=== PATIENT | male | born 1935 | race Caucasian/White ===

== ENCOUNTER 2016-06-12 07:53 | Emergency (ER) | payer OTHER ==
[~2016-06-12] VITALS: Ht 162.6 cm; Wt 94.2 kg
[2016-06-12 08:43] LABS: EOSINOPHIL (%) 0 % (0-5); HEMATOCRIT 36.8 % (38.0-50.0); IMMATURE GRANULOCYTE (%) 0.2 % (0.0-0.7); IMMATURE GRANULOCYTE COUNT 0.1 K/uL; LYMPHOCYTE COUNT 0.3 K/uL (1.0-2.8); MCHC 33.4 G/DL (30.0-36.0); MCV 92.7 FL (86-99); MEAN PLAT.VOLUME 9.5 uM^3 (9.0-12.4); MONOCYTE (%) 3.8 % (3-12); MONOCYTE COUNT 0.2 K/uL (0-0.8); NEUTROPHIL (%) 90.8 % (45-76); NEUTROPHIL COUNT 5.5 K/uL (1.8-6.4); PLATELET COUNT 162 K/uL (156-360); RBC DIS.WIDTH-CV 13.7 % (11.8-14.6); RED BLOOD COUNT 3.97 M/uL (4.00-5.50)
[2016-06-12 08:59] LABS: CHLORIDE 102 mEq/L (99-109); POTASSIUM 4.3 mEq/L (3.7-5.4); SODIUM 138 mEq/L (136-147)
[2016-06-12 09:01] LABS: GLUCOSE 149 mg/dL (70-99)
[2016-06-12 09:02] LABS: ANION GAP 9 MEQ/L (2-14)
[2016-06-12 09:05] LABS: GFR ESTIMATE (CALCULATED) 42 mL/min/; UREA NITROGEN (BUN) 21 mg/dL (9-23)
[2016-06-12 09:46] LABS: INFLUENZA A VIRAL ANTIGEN NEGATIVE; INFLUENZA B VIRAL ANTIGEN NEGATIVE
[2016-06-12 09:47] LABS: ADD MIUA? YES; BILIRUBIN NEGATIVE; BLOOD NEGATIVE; COLOR YELLOW ((YELLOW)); GLUCOSE (STRIP) NEGATIVE; KETONES NEGATIVE; LEUKOCYTES NEGATIVE; NITRITE NEGATIVE; PROTEIN (STRIP) 100; SPECIFIC GRAVITY 1.015 (1.000-1.030); UROBILINOGEN 0.2 MG/DL (0.2-1.0)
[2016-06-12 09:59] LABS: BACTERIA RARE /HPF; EPITHELIAL CELLS 1+ /HPF; HYALINE CASTS 0-5 /LPF; MUCUS NONE SEEN /LPF; RED BLOOD CELLS 0-5 /HPF (0-5); WHITE BLOOD CELLS 0-5 /HPF (0-5)
[2016-06-12] MEDS ORDERED: ZOFRAN4 MG PO ×2 (11:13→11:50)
[2016-06-12] MEDS ORDERED: PRILOSEC20 MG PO (11:47)
[2016-06-12] MEDS ORDERED: LEXAPRO20 MG PO (11:48)
[2016-06-12] MEDS ORDERED: ZYLOPRIM100 MG PO (11:48)
[2016-06-12] MEDS ORDERED: LO-DOSE ASPIRIN81 M2 PO (11:48)
[2016-06-12] MEDS ORDERED: FLOMAX0.4 MG PO (11:49)
[2016-06-12] MEDS ORDERED: LASIX40 MG PO (11:49)
[2016-06-12] MEDS ORDERED: ISOSORBIDE MONO60 MG PO (11:54)
[2016-06-12] MEDS ORDERED: LOPRESSOR50 MG PO (11:55)
[2016-06-12] MEDS ORDERED: DOCUSATE SODIU100 MG PO (11:56)
[2016-06-12] MEDS ORDERED: LAMICTAL100 MG PO (11:56)
[2016-06-12] MEDS ORDERED: NEURONTIN300 MG PO (11:57)
[2016-06-12 11:58] VITALS: BP 151/58
[2016-06-12] MEDS ORDERED: EXTRA STRENGTH500 M1 PO (11:58)
[2016-06-12] MEDS ORDERED: GENTLE LAXATIVE5 M1 PO (11:59)
[2016-06-12] MEDS ORDERED: DULCOLAX10 MG PR (11:59)
[2016-06-12] MEDS ORDERED: BACTRIM,SEPT1 TABLET PO (12:00)
[2016-06-12] MEDS ORDERED: BACTROBAN OINTM22 GM TP (12:01)
== END 2016-06-12 11:59 | disposition home or self-care (01) ==
LOC: EDBD 07:53 → EME 07:53
PROVIDERS: Emergency Medicine
DX: R50.9 Fever, unspecified (principal); S81.801A Unspecified open wound, right lower leg, initial encounter; E11.9 Type 2 diabetes mellitus without complications; J44.9 Chronic obstructive pulmonary disease, unspecified; E78.5 Hyperlipidemia, unspecified; I10 Essential (primary) hypertension; K21.9 Gastro-esophageal reflux disease without esophagitis; I25.10 Atherosclerotic heart disease of native coronary artery without angina pectoris; Z87.891 Personal history of nicotine dependence
CPT/HCPCS: 71020; 80048; 81003; 83605; 85025; 87040; 87502; 99281; 99285

== ENCOUNTER 2016-06-13 16:24 | Inpatient (IN) | payer OTHER ==
[~2016-06-13] VITALS: Ht 162.6 cm; Wt 94.1 kg
[~2016-06-13 16:24] MED LIST: BACTRIM,SEPT1 TABLET PO; BACTROBAN OINTM22 GM TP; DOCUSATE SODIU100 MG PO; DULCOLAX10 MG PR; EXTRA STRENGTH500 M1 PO; FLOMAX0.4 MG PO; GENTLE LAXATIVE5 M1 PO; ISOSORBIDE MONO60 MG PO; LAMICTAL100 MG PO; LASIX40 MG PO; LEXAPRO20 MG PO; LO-DOSE ASPIRIN81 M2 PO; LOPRESSOR50 MG PO; NEURONTIN300 MG PO; PRILOSEC20 MG PO; ZOFRAN4 MG PO; ZYLOPRIM100 MG PO
[2016-06-13 17:14] LABS: EOSINOPHIL (%) 0 % (0-5); HEMATOCRIT 32.1 % (38.0-50.0); IMMATURE GRANULOCYTE (%) 0.5 % (0.0-0.7); IMMATURE GRANULOCYTE COUNT 0.2 K/uL; LYMPHOCYTE COUNT 0.3 K/uL (1.0-2.8); MCV 93.9 FL (86-99); MEAN PLAT.VOLUME 9.2 uM^3 (9.0-12.4); MONOCYTE (%) 7.7 % (3-12); MONOCYTE COUNT 0.3 K/uL (0-0.8); NEUTROPHIL (%) 85.1 % (45-76); NEUTROPHIL COUNT 3.6 K/uL (1.8-6.4); PLATELET COUNT 133 K/uL (156-360); RBC DIS.WIDTH-SD 45.8 % (39-53); RED BLOOD COUNT 3.42 M/uL (4.00-5.50); WHITE BLOOD COUNT 4.2 K/uL (4.1-10.2)
[2016-06-13 17:23] LABS: CHLORIDE 98 mEq/L (99-109); POTASSIUM 4.5 mEq/L (3.7-5.4); SODIUM 133 mEq/L (136-147)
[2016-06-13 17:25] LABS: GLUCOSE 110 mg/dL (70-99)
[2016-06-13 17:26] LABS: ANION GAP 8 MEQ/L (2-14)
[2016-06-13 17:28] LABS: GFR ESTIMATE (CALCULATED) 19 mL/min/
[2016-06-13 17:33] LABS: UREA NITROGEN (BUN) 35 mg/dL (9-23)
[2016-06-13 17:36] LABS: TROP-I INTERPRETATION NEGATIVE; TROPONIN-I 0.08 ng/mL (0.0-0.30)
[2016-06-13 18:31] LABS: ADD MIUA? YES; BILIRUBIN NEGATIVE; BLOOD NEGATIVE; COLOR AMBER ((YELLOW)); GLUCOSE (STRIP) NEGATIVE; KETONES NEGATIVE; LEUKOCYTES NEGATIVE; NITRITE NEGATIVE; PROTEIN (STRIP) 30; SPECIFIC GRAVITY 1.023 (1.000-1.030)
[2016-06-13 18:42] LABS: BACTERIA 2+ /HPF; EPITHELIAL CELLS 1+ /HPF; MUCUS NONE SEEN /LPF; RED BLOOD CELLS NONE SEEN /HPF (0-5); UCUL ADDED? NO; WHITE BLOOD CELLS 0-5 /HPF (0-5)
[2016-06-13 18:43] LABS: CASTS PRESENT /LPF; HYALINE CASTS 0-5 /LPF
[2016-06-13 20:33] VITALS: BP 103/52
[2016-06-14 00:30] VITALS: BP 126/59
[2016-06-14 06:48] LABS: ANION GAP 6 MEQ/L (2-14); CHLORIDE 99 MEQ/L (99-109); POTASSIUM 4.5 MEQ/L (3.7-5.4); SAMPLE HEMOLYSIS CHECK 0; SAMPLE ICTERIC CHECK 0; SAMPLE LIPEMIA CHECK 0; SODIUM 130 MEQ/L (136-147); UREA NITROGEN (BUN) 35 mg/dL (9-23)
[2016-06-14 06:58] LABS: GFR ESTIMATE (CALCULATED) 23 mL/min/; GLUCOSE 74 mg/dL (70-99)
[2016-06-14 07:41] VITALS: BP 121/62
[2016-06-14 13:02] VITALS: BP 111/52
[2016-06-14 16:39] VITALS: BP 107/63
[2016-06-14 18:55] VITALS: BP 132/59
[2016-06-14 19:13] LABS: UR CREATININE CONCENTRATION 131.3 MG/DL
[2016-06-14 23:00] VITALS: BP 144/65
[2016-06-15 03:45] VITALS: BP 131/61
[2016-06-15 06:18] LABS: ANION GAP 10 MEQ/L (2-14); CHLORIDE 101 MEQ/L (99-109); GLUCOSE 66 mg/dL (70-99); IRON 16 MCG/DL (35-150); POTASSIUM 4.4 MEQ/L (3.7-5.4); SAMPLE HEMOLYSIS CHECK 0; SAMPLE ICTERIC CHECK 0; SAMPLE LIPEMIA CHECK 0; SODIUM 134 MEQ/L (136-147); UREA NITROGEN (BUN) 29 mg/dL (9-23); URIC ACID 4.6 mg/dL (3.1-9.2)
[2016-06-15 06:24] LABS: GFR ESTIMATE (CALCULATED) 37 mL/min/
[2016-06-15 08:16] LABS: FERRITIN 342 NG/ML (22-322)
[2016-06-15 08:32] VITALS: BP 159/70
[2016-06-15 11:24] VITALS: BP 160/71
[2016-06-15 15:58] VITALS: BP 135/63
[2016-06-15 18:42] VITALS: BP 125/59
[2016-06-15 23:01] VITALS: BP 110/55
[2016-06-16 06:01] LABS: ANION GAP 8 MEQ/L (2-14); CHLORIDE 102 MEQ/L (99-109); GFR ESTIMATE (CALCULATED) 45 mL/min/; GLUCOSE 80 mg/dL (70-99); SAMPLE HEMOLYSIS CHECK 0; SAMPLE ICTERIC CHECK 0; SAMPLE LIPEMIA CHECK 0; SODIUM 135 MEQ/L (136-147); UREA NITROGEN (BUN) 22 mg/dL (9-23)
[2016-06-16 06:16] LABS: EOSINOPHIL (%) 0 % (0-5); HEMATOCRIT 30.6 % (38.0-50.0); LYMPHOCYTE COUNT 0.7 K/uL (1.0-2.8); MCH 29.4 PG (29.0-34.0); MCV 91.9 FL (86-99); MONOCYTE (%) 12.9 % (3-12); MONOCYTE COUNT 0.3 K/uL (0-0.8); NEUTROPHIL (%) 54.8 % (45-76); NEUTROPHIL COUNT 1.1 K/uL (1.8-6.4); PLATELET COUNT 130 K/uL (156-360); RBC DIS.WIDTH-CV 14.2 % (11.8-14.6); RED BLOOD COUNT 3.33 M/uL (4.00-5.50)
[2016-06-16 07:47] VITALS: BP 154/62
[2016-06-16 08:41] LABS: INTACT PARATHYROID HORMONE 51 pg/mL (10-69)
[2016-06-16 12:33] VITALS: BP 144/70
[2016-06-16] MEDS ORDERED: FERROUS SULFAT325 MG PO (13:00)
[2016-06-16] MEDS ORDERED: B-COMPLEX-VITA1 EACH PO (13:01)
[2016-06-16] MEDS ORDERED: AMLODIPINE BESYL5 MG PO (13:02)
[2016-06-16] MEDS ORDERED: ERGOCALCIF50000 UNIT PO (13:02)
[2016-06-16] MEDS ORDERED: CEFTIN500 MG PO (13:03)
[2016-06-17 14:16] LABS: IFE GEL NO. 30-3
== END 2016-06-16 15:13 | disposition home or self-care (01) | DRG 683 ==
LOC: EME → EDBD 16:24 → EDOF 19:16 → 5EAST 19:16
PROVIDERS: Emergency Medicine; Family Medicine; Internal Medicine Nephrology
DX: N17.9 Acute kidney failure, unspecified (principal); N39.0 Urinary tract infection, site not specified; I95.9 Hypotension, unspecified; I42.9 Cardiomyopathy, unspecified; I13.0 Hypertensive heart and chronic kidney disease with heart failure and stage 1 through stage 4 chronic kidney disease, or unspecified chronic kidney disease; I50.9 Heart failure, unspecified; F03.90 Unspecified dementia, unspecified severity, without behavioral disturbance, psychotic disturbance, mood disturbance, and anxiety; E11.21 Type 2 diabetes mellitus with diabetic nephropathy; N18.3 Chronic kidney disease, stage 3 (moderate); I25.10 Atherosclerotic heart disease of native coronary artery without angina pectoris; E11.22 Type 2 diabetes mellitus with diabetic chronic kidney disease; B96.20 Unspecified Escherichia coli [E. coli] as the cause of diseases classified elsewhere; D63.1 Anemia in chronic kidney disease; E55.9 Vitamin D deficiency, unspecified; E66.9 Obesity, unspecified; Z68.35 Body mass index [BMI] 35.0-35.9, adult; J44.9 Chronic obstructive pulmonary disease, unspecified; E78.5 Hyperlipidemia, unspecified; F41.9 Anxiety disorder, unspecified; E11.42 Type 2 diabetes mellitus with diabetic polyneuropathy; M19.90 Unspecified osteoarthritis, unspecified site; Z87.891 Personal history of nicotine dependence; E53.8 Deficiency of other specified B group vitamins; D50.9 Iron deficiency anemia, unspecified; E87.1 Hypo-osmolality and hyponatremia; R80.9 Proteinuria, unspecified; Z95.1 Presence of aortocoronary bypass graft; I25.2 Old myocardial infarction; S71.101S Unspecified open wound, right thigh, sequela; L03.115 Cellulitis of right lower limb
CPT/HCPCS: 71020; 74176; 76770; 80048; 80069; 80202; 81003; 82306; 82570; 82607; 82728; 82746; 83540; 83605; 83880; 83970; 84300; 84466; 84484; 84550; 85025; 86334; 87040; 87077; 87086; 87186; 87502; 89190; 94799; 99281; 99285; J0690; J1756; J1940; J1956; J2060; J2405; J3370; J7030; J7050; P9047

== ENCOUNTER 2016-06-24 15:56 | Inpatient (IN) | payer OTHER ==
[~2016-06-24] VITALS: Ht 162.6 cm; Wt 91.8 kg
[~2016-06-24 15:56] MED LIST changes: +AMLODIPINE BESYL5 MG PO; +B-COMPLEX-VITA1 EACH PO; +CEFTIN500 MG PO; +ERGOCALCIF50000 UNIT PO; +FERROUS SULFAT325 MG PO
[2016-06-24 16:48] LABS: EOSINOPHIL (%) 0 % (0-5); HEMATOCRIT 35.6 % (38.0-50.0); IMMATURE GRANULOCYTE (%) 0.3 % (0.0-0.7); INSTRUMENT ABS NEUTROPHIL CT 9.2 K/uL; LYMPHOCYTE COUNT 1.3 K/uL (1.0-2.8); MCH 30.3 PG (29.0-34.0); MCHC 32.3 G/DL (30.0-36.0); MCV 93.9 FL (86-99); MEAN PLAT.VOLUME 9.5 uM^3 (9.0-12.4); MONOCYTE (%) 10.1 % (3-12); MONOCYTE COUNT 1.2 K/uL (0-0.8); NEUTROPHIL COUNT 9.2 K/uL (1.8-6.4); RBC DIS.WIDTH-CV 14.4 % (11.8-14.6); RBC DIS.WIDTH-SD 49.1 % (39-53); RED BLOOD COUNT 3.79 M/uL (4.00-5.50)
[2016-06-24 16:50] LABS: PLATELET COUNT 215 K/uL (156-360); WHITE BLOOD COUNT 11.8 K/uL (4.1-10.2)
[2016-06-24 16:57] LABS: INTER. NORMALIZED RATIO 1.2; PTT 24.7 (25-32)
[2016-06-24 16:58] LABS: CHLORIDE 99 mEq/L (99-109); POTASSIUM 4.2 mEq/L (3.7-5.4); SODIUM 136 mEq/L (136-147)
[2016-06-24 17:00] LABS: GLUCOSE 127 mg/dL (70-99)
[2016-06-24 17:01] LABS: ANION GAP 8 MEQ/L (2-14)
[2016-06-24 17:02] LABS: TOTAL BILIRUBIN 0.9 mg/dL (0.0-1.0)
[2016-06-24 17:04] LABS: ALKALINE PHOSPHATASE 103 IU/L (3-129); GFR ESTIMATE (CALCULATED) 42 mL/min/
[2016-06-24 17:05] LABS: UREA NITROGEN (BUN) 16 mg/dL (9-23)
[2016-06-24 17:07] LABS: LIPASE 37 U/L (1.0-51.0)
[2016-06-24 17:13] LABS: TROP-I INTERPRETATION NEGATIVE; TROPONIN-I 0.02 ng/mL (0.0-0.30)
[2016-06-24] MEDS ORDERED: NORVASC5 MG PO (17:50)
[2016-06-24] MEDS ORDERED: B COMPLETE1 EACH PO (17:50)
[2016-06-24 18:31] LABS: ADD MIUA? YES; BILIRUBIN NEGATIVE; BLOOD NEGATIVE; COLOR AMBER ((YELLOW)); GLUCOSE (STRIP) NEGATIVE; KETONES NEGATIVE; LEUKOCYTES NEGATIVE; NITRITE NEGATIVE; PROTEIN (STRIP) 100; SPECIFIC GRAVITY 1.018 (1.000-1.030); UROBILINOGEN 0.2 MG/DL (0.2-1.0)
[2016-06-24 18:41] LABS: BACTERIA RARE /HPF; BUDDING YEAST 1+; EPITHELIAL CELLS RARE /HPF; HYALINE CASTS 15-20 /LPF; MUCUS 1+ /LPF; RED BLOOD CELLS 0-5 /HPF (0-5); UCUL ADDED? NO; WHITE BLOOD CELLS 0-5 /HPF (0-5)
[2016-06-24 20:53] VITALS: BP 121/56
[2016-06-24 22:02] LABS: C DIFF TOXIN POSITIVE (NEGATIVE)
[2016-06-24 22:03] LABS: PROBE CHECK PASS
[2016-06-24 22:59] VITALS: BP 123/58
[2016-06-25 06:04] LABS: EOSINOPHIL (%) 0 % (0-5); HEMATOCRIT 34.6 % (38.0-50.0); IMMATURE GRANULOCYTE (%) 0.5 % (0.0-0.7); IMMATURE GRANULOCYTE COUNT 0.1 K/uL; INSTRUMENT ABS NEUTROPHIL CT 9.1 K/uL; LYMPHOCYTE COUNT 1.3 K/uL (1.0-2.8); MCH 30.3 PG (29.0-34.0); MCHC 31.8 G/DL (30.0-36.0); MCV 95.3 FL (86-99); MEAN PLAT.VOLUME 9.8 uM^3 (9.0-12.4); MONOCYTE (%) 11.4 % (3-12); MONOCYTE COUNT 1.4 K/uL (0-0.8); NEUTROPHIL (%) 76.6 % (45-76); NEUTROPHIL COUNT 9.1 K/uL (1.8-6.4); PLATELET COUNT 183 K/uL (156-360); RBC DIS.WIDTH-CV 14.6 % (11.8-14.6); RBC DIS.WIDTH-SD 50.3 % (39-53); RED BLOOD COUNT 3.63 M/uL (4.00-5.50); WHITE BLOOD COUNT 11.8 K/uL (4.1-10.2)
[2016-06-25 06:33] LABS: ANION GAP 7 MEQ/L (2-14); CHLORIDE 102 MEQ/L (99-109); GFR ESTIMATE (CALCULATED) 52 mL/min/; GLUCOSE 148 mg/dL (70-99); POTASSIUM 3.9 MEQ/L (3.7-5.4); SAMPLE HEMOLYSIS CHECK 0; SAMPLE ICTERIC CHECK 0; SAMPLE LIPEMIA CHECK 0; SODIUM 136 MEQ/L (136-147); UREA NITROGEN (BUN) 19 mg/dL (9-23)
[2016-06-25 07:04] VITALS: BP 138/58
[2016-06-25 16:08] VITALS: BP 139/65
[2016-06-25 23:06] VITALS: BP 153/67
[2016-06-26 06:51] LABS: EOSINOPHIL (%) 0.2 % (0-5); IMMATURE GRANULOCYTE (%) 0.7 % (0.0-0.7); IMMATURE GRANULOCYTE COUNT 0.1 K/uL; INSTRUMENT ABS NEUTROPHIL CT 6.3 K/uL; LYMPHOCYTE COUNT 1.3 K/uL (1.0-2.8); MCH 30.2 PG (29.0-34.0); MCHC 32.3 G/DL (30.0-36.0); MCV 93.6 FL (86-99); MONOCYTE (%) 14.4 % (3-12); MONOCYTE COUNT 1.3 K/uL (0-0.8); NEUTROPHIL (%) 69.8 % (45-76); NEUTROPHIL COUNT 6.3 K/uL (1.8-6.4); RBC DIS.WIDTH-CV 14.3 % (11.8-14.6); RBC DIS.WIDTH-SD 48.8 % (39-53); RED BLOOD COUNT 3.74 M/uL (4.00-5.50)
[2016-06-26 07:22] VITALS: BP 156/62
[2016-06-26 07:25] LABS: ANION GAP 9 MEQ/L (2-14); CHLORIDE 104 MEQ/L (99-109); GFR ESTIMATE (CALCULATED) > 59 mL/min/; SAMPLE HEMOLYSIS CHECK 2; SAMPLE ICTERIC CHECK 0; SAMPLE LIPEMIA CHECK 0; SODIUM 138 MEQ/L (136-147); UREA NITROGEN (BUN) 17 mg/dL (9-23)
[2016-06-26 07:36] LABS: GLUCOSE 92 mg/dL (70-99); POTASSIUM 4.1 MEQ/L (3.7-5.4)
[2016-06-26 08:48] LABS: MEAN PLAT.VOLUME 10.4 uM^3 (9.0-12.4); PLATELET COUNT 224 K/uL (156-360)
[2016-06-26 15:10] VITALS: BP 133/62
[2016-06-26 22:57] VITALS: BP 148/62
[2016-06-27 06:45] VITALS: BP 144/56
[2016-06-27 07:07] LABS: EOSINOPHIL (%) 0 % (0-5); HEMATOCRIT 35.4 % (38.0-50.0); IMMATURE GRANULOCYTE (%) 0.5 % (0.0-0.7); INSTRUMENT ABS NEUTROPHIL CT 3.4 K/uL; LYMPHOCYTE COUNT 1.5 K/uL (1.0-2.8); MCH 29.6 PG (29.0-34.0); MCHC 31.6 G/DL (30.0-36.0); MCV 93.7 FL (86-99); MEAN PLAT.VOLUME 9.9 uM^3 (9.0-12.4); MONOCYTE (%) 14.7 % (3-12); MONOCYTE COUNT 0.9 K/uL (0-0.8); NEUTROPHIL (%) 59.3 % (45-76); NEUTROPHIL COUNT 3.4 K/uL (1.8-6.4); PLATELET COUNT 228 K/uL (156-360); RBC DIS.WIDTH-CV 14.2 % (11.8-14.6); RBC DIS.WIDTH-SD 48.2 % (39-53); RED BLOOD COUNT 3.78 M/uL (4.00-5.50)
[2016-06-27 07:08] LABS: WHITE BLOOD COUNT 5.8 K/uL (4.1-10.2)
[2016-06-27 07:26] LABS: ANION GAP 9 MEQ/L (2-14); CHLORIDE 103 MEQ/L (99-109); GFR ESTIMATE (CALCULATED) > 59 mL/min/; GLUCOSE 82 mg/dL (70-99); POTASSIUM 3.1 MEQ/L (3.7-5.4); SAMPLE HEMOLYSIS CHECK 0; SAMPLE ICTERIC CHECK 0; SAMPLE LIPEMIA CHECK 0; SODIUM 139 MEQ/L (136-147); UREA NITROGEN (BUN) 18 mg/dL (9-23)
[2016-06-27 16:30] VITALS: BP 144/77
[2016-06-27 22:56] VITALS: BP 141/68
[2016-06-28 06:23] LABS: EOSINOPHIL (%) 0 % (0-5); HEMATOCRIT 34.5 % (38.0-50.0); IMMATURE GRANULOCYTE (%) 0.4 % (0.0-0.7); INSTRUMENT ABS NEUTROPHIL CT 2.4 K/uL; LYMPHOCYTE COUNT 1.4 K/uL (1.0-2.8); MCH 29.9 PG (29.0-34.0); MCHC 32.2 G/DL (30.0-36.0); MEAN PLAT.VOLUME 9.7 uM^3 (9.0-12.4); MONOCYTE (%) 17.4 % (3-12); MONOCYTE COUNT 0.8 K/uL (0-0.8); NEUTROPHIL (%) 51.4 % (45-76); NEUTROPHIL COUNT 2.4 K/uL (1.8-6.4); PLATELET COUNT 209 K/uL (156-360); RBC DIS.WIDTH-CV 13.8 % (11.8-14.6); RBC DIS.WIDTH-SD 46.7 % (39-53); RED BLOOD COUNT 3.71 M/uL (4.00-5.50); WHITE BLOOD COUNT 4.6 K/uL (4.1-10.2)
[2016-06-28 06:32] LABS: ANION GAP 7 MEQ/L (2-14); CHLORIDE 104 MEQ/L (99-109); GFR ESTIMATE (CALCULATED) > 59 mL/min/; GLUCOSE 79 mg/dL (70-99); POTASSIUM 3.6 MEQ/L (3.7-5.4); SAMPLE HEMOLYSIS CHECK 0; SAMPLE ICTERIC CHECK 0; SAMPLE LIPEMIA CHECK 0; SODIUM 136 MEQ/L (136-147); UREA NITROGEN (BUN) 13 mg/dL (9-23)
[2016-06-28 07:20] VITALS: BP 152/76
[2016-06-28 16:29] VITALS: BP 156/72
[2016-06-28 23:19] VITALS: BP 128/62
[2016-06-29 06:57] LABS: EOSINOPHIL (%) 0 % (0-5); HEMATOCRIT 35.1 % (38.0-50.0); IMMATURE GRANULOCYTE (%) 0.6 % (0.0-0.7); INSTRUMENT ABS NEUTROPHIL CT 2.8 K/uL; LYMPHOCYTE COUNT 1.6 K/uL (1.0-2.8); MCH 29.7 PG (29.0-34.0); MCHC 32.2 G/DL (30.0-36.0); MCV 92.4 FL (86-99); MEAN PLAT.VOLUME 9.7 uM^3 (9.0-12.4); MONOCYTE (%) 15.6 % (3-12); MONOCYTE COUNT 0.8 K/uL (0-0.8); NEUTROPHIL (%) 52.7 % (45-76); NEUTROPHIL COUNT 2.8 K/uL (1.8-6.4); RBC DIS.WIDTH-SD 47.7 % (39-53); WHITE BLOOD COUNT 5.2 K/uL (4.1-10.2)
[2016-06-29 07:01] LABS: PLATELET COUNT 289 K/uL (156-360)
[2016-06-29 07:08] LABS: ANION GAP 10 MEQ/L (2-14); CHLORIDE 103 MEQ/L (99-109); GFR ESTIMATE (CALCULATED) 52 mL/min/; GLUCOSE 82 mg/dL (70-99); POTASSIUM 3.3 MEQ/L (3.7-5.4); SAMPLE HEMOLYSIS CHECK 0; SAMPLE ICTERIC CHECK 0; SAMPLE LIPEMIA CHECK 0; SODIUM 137 MEQ/L (136-147); UREA NITROGEN (BUN) 18 mg/dL (9-23)
[2016-06-29 08:52] VITALS: BP 138/60
[2016-06-29 22:30] VITALS: BP 120/67
[2016-06-30 07:09] LABS: ANION GAP 9 MEQ/L (2-14); CHLORIDE 105 MEQ/L (99-109); GFR ESTIMATE (CALCULATED) 42 mL/min/; GLUCOSE 83 mg/dL (70-99); SAMPLE HEMOLYSIS CHECK 1; SAMPLE ICTERIC CHECK 0; SAMPLE LIPEMIA CHECK 0; SODIUM 137 MEQ/L (136-147); UREA NITROGEN (BUN) 20 mg/dL (9-23)
[2016-06-30 07:16] LABS: POTASSIUM 3.6 MEQ/L (3.7-5.4)
[2016-06-30 07:32] VITALS: BP 138/58
[2016-06-30] MEDS ORDERED: METRONIDAZOLE500 MG PO (12:50)
[2016-06-30] MEDS ORDERED: DONEPEZIL HCL5 MG PO (12:50)
[2016-06-30] MEDS ORDERED: RANITIDINE HCL150 MG PO (14:16)
== END 2016-06-30 16:18 | disposition home or self-care (01) | DRG 603 ==
LOC: EME 15:56 → 5EAST 17:38 → EDOF 17:38 → 5EAST 20:37
PROVIDERS: Emergency Medicine; Family Medicine
DX: L03.115 Cellulitis of right lower limb (principal); A04.7 Enterocolitis due to Clostridium difficile; N17.9 Acute kidney failure, unspecified; I95.9 Hypotension, unspecified; E11.22 Type 2 diabetes mellitus with diabetic chronic kidney disease; J44.9 Chronic obstructive pulmonary disease, unspecified; S80.11XA Contusion of right lower leg, initial encounter; N18.9 Chronic kidney disease, unspecified; D63.1 Anemia in chronic kidney disease; R41.82 Altered mental status, unspecified; I12.9 Hypertensive chronic kidney disease with stage 1 through stage 4 chronic kidney disease, or unspecified chronic kidney disease; I25.10 Atherosclerotic heart disease of native coronary artery without angina pectoris; F01.50 Vascular dementia, unspecified severity, without behavioral disturbance, psychotic disturbance, mood disturbance, and anxiety; E87.6 Hypokalemia; F32.9 Major depressive disorder, single episode, unspecified; E78.5 Hyperlipidemia, unspecified; E11.40 Type 2 diabetes mellitus with diabetic neuropathy, unspecified; M10.9 Gout, unspecified; E66.9 Obesity, unspecified
CPT/HCPCS: 70450; 71010; 73564; 73590; 80048; 80053; 80202; 81003; 83605; 83690; 84484; 85025; 85610; 85730; 87040; 87493; 93005; 94799; 99281; 99285; J0692; J1650; J3370; J7042; J7050

== ENCOUNTER 2016-07-24 12:45 | Inpatient (IN) | payer OTHER ==
[~2016-07-24] VITALS: Ht 162.6 cm; Wt 84.9 kg
[~2016-07-24 12:45] MED LIST changes: +B COMPLETE1 EACH PO; +DONEPEZIL HCL5 MG PO; +METRONIDAZOLE500 MG PO; +NORVASC5 MG PO; +RANITIDINE HCL150 MG PO
[2016-07-24 14:06] LABS: EOSINOPHIL (%) 0 % (0-5); HEMATOCRIT 37.5 % (38.0-50.0); IMMATURE GRANULOCYTE (%) 0.2 % (0.0-0.7); MCH 30.6 PG (29.0-34.0); MCHC 32.8 G/DL (30.0-36.0); MCV 93.3 FL (86-99); MONOCYTE (%) 15.4 % (3-12); MONOCYTE COUNT 1.3 K/uL (0-0.8); NEUTROPHIL (%) 60.2 % (45-76); RBC DIS.WIDTH-CV 16.2 % (11.8-14.6); RBC DIS.WIDTH-SD 55.5 % (39-53); RED BLOOD COUNT 4.02 M/uL (4.00-5.50)
[2016-07-24 14:16] LABS: CHLORIDE 102 mEq/L (99-109); SODIUM 137 mEq/L (136-147)
[2016-07-24 14:18] LABS: GLUCOSE 99 mg/dL (70-99)
[2016-07-24 14:19] LABS: ANION GAP 9 MEQ/L (2-14)
[2016-07-24 14:20] LABS: TOTAL BILIRUBIN 0.7 mg/dL (0.0-1.0)
[2016-07-24 14:22] LABS: ALKALINE PHOSPHATASE 71 IU/L (3-129); GFR ESTIMATE (CALCULATED) 42 mL/min/
[2016-07-24 14:23] LABS: UREA NITROGEN (BUN) 17 mg/dL (9-23)
[2016-07-24 14:24] LABS: ADD MIUA? YES; BILIRUBIN SMALL; BLOOD NEGATIVE; COLOR AMBER ((YELLOW)); GLUCOSE (STRIP) NEGATIVE; KETONES NEGATIVE; LEUKOCYTES MODERATE; NITRITE POSITIVE; PROTEIN (STRIP) 100; SPECIFIC GRAVITY 1.024 (1.000-1.030); UROBILINOGEN 0.2 MG/DL (0.2-1.0)
[2016-07-24 14:26] LABS: C DIFF TOXIN ND (NEGATIVE)
[2016-07-24 14:29] LABS: BACTERIA 3+ /HPF; EPITHELIAL CELLS RARE /HPF; HYALINE CASTS 40-50 /LPF; MUCUS 1+ /LPF; UCUL ADDED? YES; WHITE BLOOD CELLS TNTC /HPF (0-5)
[2016-07-24 14:39] LABS: WHITE BLOOD COUNT 8.3 K/uL (4.1-10.2)
[2016-07-24] MEDS ORDERED: ERGOCALCIF50000 UNIT PO (15:46)
[2016-07-24] MEDS ORDERED: IRON325 M1 PO (15:47)
[2016-07-24] MEDS ORDERED: RANITIDINE HCL150 MG PO (15:50)
[2016-07-24] MEDS ORDERED: DULCOLAX10 MG PR (15:52)
[2016-07-24] MEDS ORDERED: LAXATIVE5 M1 PO (15:52)
[2016-07-24] MEDS ORDERED: MYCOSTATIN15 GM PO (15:53)
[2016-07-24] MEDS ORDERED: CALMOSEPTINE O120 GM TP (15:54)
[2016-07-24] MEDS ORDERED: LOPRESSOR25 MG PO (15:55)
[2016-07-24 18:13] VITALS: BP 137/65
[2016-07-24 20:00] VITALS: BP 100/58
[2016-07-25] VITALS (7 sets, daily range): BP systolic 104–157; BP diastolic 54–84
[2016-07-26 03:40] VITALS: BP 136/68
[2016-07-26 06:18] LABS: HEMATOCRIT 34.7 % (38.0-50.0); MCH 29.8 PG (29.0-34.0); MCV 93.3 FL (86-99); MEAN PLAT.VOLUME 10.1 uM^3 (9.0-12.4); RBC DIS.WIDTH-CV 16.1 % (11.8-14.6); RBC DIS.WIDTH-SD 55.3 % (39-53); RED BLOOD COUNT 3.72 M/uL (4.00-5.50)
[2016-07-26 06:41] LABS: ANION GAP 8 MEQ/L (2-14); CHLORIDE 102 MEQ/L (99-109); GFR ESTIMATE (CALCULATED) 52 mL/min/; GLUCOSE 96 mg/dL (70-99); POTASSIUM 3.5 MEQ/L (3.7-5.4); SAMPLE HEMOLYSIS CHECK 0; SAMPLE ICTERIC CHECK 0; SAMPLE LIPEMIA CHECK 0; SODIUM 135 MEQ/L (136-147); UREA NITROGEN (BUN) 15 mg/dL (9-23)
[2016-07-26 07:07] LABS: EOSINOPHIL (%) 0 % (0-5); IMMATURE GRANULOCYTE (%) 0.4 % (0.0-0.7); INSTRUMENT ABS NEUTROPHIL CT 7.2 K/uL; LYMPHOCYTE COUNT 1.3 K/uL (1.0-2.8); MONOCYTE (%) 13.7 % (3-12); MONOCYTE COUNT 1.4 K/uL (0-0.8); NEUTROPHIL (%) 72.6 % (45-76); NEUTROPHIL COUNT 7.2 K/uL (1.8-6.4)
[2016-07-26 09:13] VITALS: BP 117/56
[2016-07-26 09:43] LABS: PLATELET COUNT 150 K/uL (156-360)
[2016-07-26 11:25] VITALS: BP 101/54
[2016-07-26 15:17] VITALS: BP 101/58
[2016-07-26 19:30] VITALS: BP 119/57
[2016-07-26 23:00] VITALS: BP 134/60
[2016-07-27 03:15] VITALS: BP 168/74
[2016-07-27 07:40] VITALS: BP 151/78
[2016-07-27 09:58] LABS: ANION GAP 7 MEQ/L (2-14); CHLORIDE 103 MEQ/L (99-109); GFR ESTIMATE (CALCULATED) > 59 mL/min/; GLUCOSE 98 mg/dL (70-99); POTASSIUM 3.1 MEQ/L (3.7-5.4); SAMPLE HEMOLYSIS CHECK 0; SAMPLE ICTERIC CHECK 0; SAMPLE LIPEMIA CHECK 0; SODIUM 134 MEQ/L (136-147); UREA NITROGEN (BUN) 13 mg/dL (9-23)
[2016-07-27 10:05] LABS: EOSINOPHIL (%) 0 % (0-5); IMMATURE GRANULOCYTE (%) 0.6 % (0.0-0.7); INSTRUMENT ABS NEUTROPHIL CT 4.8 K/uL; MCHC 33.1 G/DL (30.0-36.0); MCV 90.5 FL (86-99); MONOCYTE (%) 6.2 % (3-12); MONOCYTE COUNT 0.4 K/uL (0-0.8); NEUTROPHIL (%) 76.7 % (45-76); NEUTROPHIL COUNT 4.8 K/uL (1.8-6.4); RBC DIS.WIDTH-SD 52.3 % (39-53)
[2016-07-27 10:16] LABS: RED BLOOD COUNT 5.97 M/uL (4.00-5.50); WHITE BLOOD COUNT 6.3 K/uL (4.1-10.2)
[2016-07-27 11:24] LABS: MEAN PLAT.VOLUME 10.7 uM^3 (9.0-12.4)
[2016-07-27 11:30] LABS: PLATELET COUNT 67 K/uL (156-360)
[2016-07-27 15:23] VITALS: BP 145/79
[2016-07-28 00:03] VITALS: BP 130/60
[2016-07-28 05:59] VITALS: BP 140/60
[2016-07-28 06:22] LABS: EOSINOPHIL (%) 0 % (0-5); HEMATOCRIT 42.8 % (38.0-50.0); IMMATURE GRANULOCYTE (%) 0.8 % (0.0-0.7); INSTRUMENT ABS NEUTROPHIL CT 2.3 K/uL; LYMPHOCYTE COUNT 1.2 K/uL (1.0-2.8); MCH 29.8 PG (29.0-34.0); MCHC 32.7 G/DL (30.0-36.0); MCV 91.1 FL (86-99); MEAN PLAT.VOLUME 9.6 uM^3 (9.0-12.4); MONOCYTE (%) 6.9 % (3-12); MONOCYTE COUNT 0.3 K/uL (0-0.8); NEUTROPHIL (%) 61.4 % (45-76); NEUTROPHIL COUNT 2.3 K/uL (1.8-6.4); RBC DIS.WIDTH-CV 15.6 % (11.8-14.6); RBC DIS.WIDTH-SD 52.4 % (39-53)
[2016-07-28 06:51] LABS: ANION GAP 8 MEQ/L (2-14); CHLORIDE 109 MEQ/L (99-109); GFR ESTIMATE (CALCULATED) > 59 mL/min/; GLUCOSE 101 mg/dL (70-99); POTASSIUM 3.3 MEQ/L (3.7-5.4); SAMPLE HEMOLYSIS CHECK 0; SAMPLE ICTERIC CHECK 0; SAMPLE LIPEMIA CHECK 0; SODIUM 140 MEQ/L (136-147); UREA NITROGEN (BUN) 9 mg/dL (9-23)
[2016-07-28 07:15] LABS: PLATELET COUNT 146 K/uL (156-360); WHITE BLOOD COUNT 3.8 K/uL (4.1-10.2)
[2016-07-28 08:00] VITALS: BP 130/60
[2016-07-28 16:00] VITALS: BP 146/72
[2016-07-28 21:06] VITALS: BP 118/58
[2016-07-28 23:57] VITALS: BP 130/60
[2016-07-29 06:14] LABS: ANION GAP 7 MEQ/L (2-14); CHLORIDE 108 MEQ/L (99-109); GFR ESTIMATE (CALCULATED) > 59 mL/min/; GLUCOSE 102 mg/dL (70-99); POTASSIUM 3.4 MEQ/L (3.7-5.4); SAMPLE HEMOLYSIS CHECK 0; SAMPLE ICTERIC CHECK 0; SAMPLE LIPEMIA CHECK 0; SODIUM 140 MEQ/L (136-147); UREA NITROGEN (BUN) 7 mg/dL (9-23)
[2016-07-29 08:39] VITALS: BP 135/80
[2016-07-29 15:38] VITALS: BP 130/85
[2016-07-29 21:20] VITALS: BP 128/62
[2016-07-30] VITALS: BP 130/85
[2016-07-30 07:59] LABS: CHLORIDE 111 mEq/L (99-109); SODIUM 140 mEq/L (136-147)
[2016-07-30 08:00] LABS: POTASSIUM 4.4 mEq/L (3.7-5.4)
[2016-07-30 08:01] LABS: GLUCOSE 81 mg/dL (70-99)
[2016-07-30 08:03] LABS: ANION GAP 11 MEQ/L (2-14)
[2016-07-30 08:05] LABS: GFR ESTIMATE (CALCULATED) > 59 mL/min/
[2016-07-30 08:06] LABS: UREA NITROGEN (BUN) 8 mg/dL (9-23)
[2016-07-30 08:12] VITALS: BP 177/72
[2016-07-30 17:04] VITALS: BP 141/63
[2016-07-30 21:53] LABS: C DIFF TOXIN NEGATIVE (NEGATIVE)
[2016-07-30 22:01] LABS: PROBE CHECK PASS; SPECIMEN PROCESSING CONTROL PASS
[2016-07-30 23:20] VITALS: BP 135/57
[2016-07-31 06:14] LABS: EOSINOPHIL (%) 0.2 % (0-5); HEMATOCRIT 37.3 % (38.0-50.0); IMMATURE GRANULOCYTE (%) 0.9 % (0.0-0.7); IMMATURE GRANULOCYTE COUNT 0.1 K/uL; INSTRUMENT ABS NEUTROPHIL CT 3.5 K/uL; LYMPHOCYTE COUNT 1.5 K/uL (1.0-2.8); MCH 29.6 PG (29.0-34.0); MCHC 32.4 G/DL (30.0-36.0); MCV 91.2 FL (86-99); MEAN PLAT.VOLUME 9.2 uM^3 (9.0-12.4); MONOCYTE (%) 11.7 % (3-12); MONOCYTE COUNT 0.7 K/uL (0-0.8); NEUTROPHIL (%) 60.5 % (45-76); NEUTROPHIL COUNT 3.5 K/uL (1.8-6.4); RBC DIS.WIDTH-SD 53.8 % (39-53); RED BLOOD COUNT 4.09 M/uL (4.00-5.50)
[2016-07-31 06:20] LABS: PLATELET COUNT 200 K/uL (156-360); WHITE BLOOD COUNT 5.7 K/uL (4.1-10.2)
[2016-07-31 06:31] LABS: ANION GAP 7 MEQ/L (2-14); CHLORIDE 109 MEQ/L (99-109); GFR ESTIMATE (CALCULATED) > 59 mL/min/; GLUCOSE 79 mg/dL (70-99); POTASSIUM 3.9 MEQ/L (3.7-5.4); SAMPLE HEMOLYSIS CHECK 0; SAMPLE ICTERIC CHECK 0; SAMPLE LIPEMIA CHECK 0; SODIUM 139 MEQ/L (136-147); UREA NITROGEN (BUN) 7 mg/dL (9-23)
[2016-07-31 07:57] VITALS: BP 125/80
[2016-07-31 15:25] VITALS: BP 130/85
[2016-08-01 00:01] VITALS: BP 122/64
[2016-08-01 06:09] LABS: EOSINOPHIL (%) 0 % (0-5); HEMATOCRIT 37.8 % (38.0-50.0); IMMATURE GRANULOCYTE (%) 1.1 % (0.0-0.7); IMMATURE GRANULOCYTE COUNT 0.1 K/uL; INSTRUMENT ABS NEUTROPHIL CT 2.4 K/uL; LYMPHOCYTE COUNT 1.4 K/uL (1.0-2.8); MCH 29.5 PG (29.0-34.0); MCHC 32.5 G/DL (30.0-36.0); MCV 90.6 FL (86-99); MEAN PLAT.VOLUME 9.5 uM^3 (9.0-12.4); MONOCYTE (%) 13.5 % (3-12); MONOCYTE COUNT 0.6 K/uL (0-0.8); NEUTROPHIL (%) 53.4 % (45-76); NEUTROPHIL COUNT 2.4 K/uL (1.8-6.4); PLATELET COUNT 198 K/uL (156-360); RBC DIS.WIDTH-SD 53.2 % (39-53); RED BLOOD COUNT 4.17 M/uL (4.00-5.50); WHITE BLOOD COUNT 4.5 K/uL (4.1-10.2)
[2016-08-01 06:26] LABS: ANION GAP 8 MEQ/L (2-14); CHLORIDE 108 MEQ/L (99-109); GFR ESTIMATE (CALCULATED) > 59 mL/min/; GLUCOSE 88 mg/dL (70-99); POTASSIUM 3.8 MEQ/L (3.7-5.4); SAMPLE HEMOLYSIS CHECK 0; SAMPLE ICTERIC CHECK 0; SAMPLE LIPEMIA CHECK 0; SODIUM 141 MEQ/L (136-147); UREA NITROGEN (BUN) 9 mg/dL (9-23)
[2016-08-01 07:28] VITALS: BP 130/80
[2016-08-01 16:12] VITALS: BP 138/74
[2016-08-01 21:00] VITALS: BP 123/59
[2016-08-01 23:19] VITALS: BP 142/65
[2016-08-02 04:18] VITALS: BP 145/64
[2016-08-02 07:33] LABS: ANION GAP 7 MEQ/L (2-14); CHLORIDE 106 MEQ/L (99-109); GFR ESTIMATE (CALCULATED) 57 mL/min/; GLUCOSE 88 mg/dL (70-99); POTASSIUM 3.7 MEQ/L (3.7-5.4); SAMPLE HEMOLYSIS CHECK 0; SAMPLE ICTERIC CHECK 0; SAMPLE LIPEMIA CHECK 0; SODIUM 138 MEQ/L (136-147); UREA NITROGEN (BUN) 13 mg/dL (9-23)
[2016-08-02 12:40] VITALS: BP 129/57
[2016-08-02 20:35] VITALS: BP 128/70
[2016-08-03] VITALS: BP 130/78
[2016-08-03 07:30] VITALS: BP 158/67
[2016-08-03 08:38] LABS: EOSINOPHIL (%) 0 % (0-5); HEMATOCRIT 35.7 % (38.0-50.0); IMMATURE GRANULOCYTE (%) 0.9 % (0.0-0.7); INSTRUMENT ABS NEUTROPHIL CT 2.5 K/uL; LYMPHOCYTE COUNT 1.5 K/uL (1.0-2.8); MCHC 32.8 G/DL (30.0-36.0); MCV 91.5 FL (86-99); MONOCYTE (%) 10.4 % (3-12); MONOCYTE COUNT 0.5 K/uL (0-0.8); NEUTROPHIL (%) 56.1 % (45-76); NEUTROPHIL COUNT 2.5 K/uL (1.8-6.4); NRBC (%) 0.4 /100 WBC (0-0); PLATELET COUNT 226 K/uL (156-360); RBC DIS.WIDTH-CV 16.6 % (11.8-14.6); RBC DIS.WIDTH-SD 55.3 % (39-53); WHITE BLOOD COUNT 4.5 K/uL (4.1-10.2)
[2016-08-03 09:05] LABS: ANION GAP 5 MEQ/L (2-14); CHLORIDE 106 MEQ/L (99-109); GFR ESTIMATE (CALCULATED) > 59 mL/min/; GLUCOSE 88 mg/dL (70-99); POTASSIUM 4.2 MEQ/L (3.7-5.4); SAMPLE HEMOLYSIS CHECK 0; SAMPLE ICTERIC CHECK 0; SAMPLE LIPEMIA CHECK 0; SODIUM 140 MEQ/L (136-147); UREA NITROGEN (BUN) 11 mg/dL (9-23)
[2016-08-03 16:45] VITALS: BP 140/56
[2016-08-03 21:30] VITALS: BP 128/58
[2016-08-04] VITALS: BP 128/74
[2016-08-04 05:43] LABS: EOSINOPHIL (%) 0 % (0-5); HEMATOCRIT 35.4 % (38.0-50.0); IMMATURE GRANULOCYTE (%) 0.7 % (0.0-0.7); INSTRUMENT ABS NEUTROPHIL CT 2.1 K/uL; LYMPHOCYTE COUNT 1.5 K/uL (1.0-2.8); MCH 30.3 PG (29.0-34.0); MCHC 33.1 G/DL (30.0-36.0); MCV 91.7 FL (86-99); MEAN PLAT.VOLUME 8.7 uM^3 (9.0-12.4); MONOCYTE (%) 9.9 % (3-12); MONOCYTE COUNT 0.4 K/uL (0-0.8); NEUTROPHIL (%) 52.3 % (45-76); NEUTROPHIL COUNT 2.1 K/uL (1.8-6.4); PLATELET COUNT 171 K/uL (156-360); RBC DIS.WIDTH-CV 16.4 % (11.8-14.6); RBC DIS.WIDTH-SD 55.5 % (39-53); RED BLOOD COUNT 3.86 M/uL (4.00-5.50)
[2016-08-04 06:03] LABS: ANION GAP 5 MEQ/L (2-14); CHLORIDE 105 MEQ/L (99-109); GFR ESTIMATE (CALCULATED) > 59 mL/min/; GLUCOSE 80 mg/dL (70-99); SAMPLE HEMOLYSIS CHECK 2; SAMPLE ICTERIC CHECK 0; SAMPLE LIPEMIA CHECK 0; SODIUM 138 MEQ/L (136-147); UREA NITROGEN (BUN) 9 mg/dL (9-23)
[2016-08-04 06:04] LABS: POTASSIUM 4.7 MEQ/L (3.7-5.4)
[2016-08-04 08:00] VITALS: BP 160/78
[2016-08-04 09:36] LABS: EOSINOPHIL (%) 0 % (0-5); HEMATOCRIT 38.5 % (38.0-50.0); IMMATURE GRANULOCYTE (%) 0.7 % (0.0-0.7); INSTRUMENT ABS NEUTROPHIL CT 2.4 K/uL; LYMPHOCYTE COUNT 1.5 K/uL (1.0-2.8); MCHC 32.7 G/DL (30.0-36.0); MCV 91.7 FL (86-99); MEAN PLAT.VOLUME 9.4 uM^3 (9.0-12.4); MONOCYTE (%) 7.7 % (3-12); MONOCYTE COUNT 0.3 K/uL (0-0.8); NEUTROPHIL (%) 55.9 % (45-76); NEUTROPHIL COUNT 2.4 K/uL (1.8-6.4); PLATELET COUNT 184 K/uL (156-360); RBC DIS.WIDTH-CV 16.5 % (11.8-14.6); RBC DIS.WIDTH-SD 55.2 % (39-53); WHITE BLOOD COUNT 4.3 K/uL (4.1-10.2)
[2016-08-04 10:04] LABS: TROP-I INTERPRETATION NEGATIVE; TROPONIN-I < 0.01 ng/mL (0.0-0.30)
[2016-08-04] MEDS ORDERED: VANCOCIN HCL125 MG PO (13:44)
[2016-08-04] MEDS ORDERED: VANCOMYCIN HCL125 MG PO ×3 (13:44)
[2016-08-05 14:03] LABS: POC NON-PRINT COM 1 ND
== END 2016-08-04 15:18 | disposition home or self-care (01) | DRG 373 ==
LOC: EME 12:45 → EDOF 15:06 → 5WEST 15:06 → EDOF 15:06 → 5WEST 17:58 → 4SOUTH 07-25 18:27 → 5WEST 07-25 18:27 → 4SOUTH 07-26 14:59
PROVIDERS: Emergency Medicine; Family Medicine; Internal Medicine; Internal Medicine Infectious Disease
DX: A04.7 Enterocolitis due to Clostridium difficile (principal); J44.9 Chronic obstructive pulmonary disease, unspecified; R07.89 Other chest pain; I10 Essential (primary) hypertension; E11.9 Type 2 diabetes mellitus without complications; I25.10 Atherosclerotic heart disease of native coronary artery without angina pectoris; F03.90 Unspecified dementia, unspecified severity, without behavioral disturbance, psychotic disturbance, mood disturbance, and anxiety; K57.30 Diverticulosis of large intestine without perforation or abscess without bleeding; N20.0 Calculus of kidney; B96.20 Unspecified Escherichia coli [E. coli] as the cause of diseases classified elsewhere; E66.9 Obesity, unspecified; Z68.33 Body mass index [BMI] 33.0-33.9, adult; Z95.1 Presence of aortocoronary bypass graft
CPT/HCPCS: 71010; 74176; 80048; 80053; 80061; 81003; 82272; 84484; 85025; 85025 91; 85027; 87040; 87077; 87086; 87186; 87493; 93005; 99281; 99285; G0378; J0692; J0696; J1650; J2405; J7050

== ENCOUNTER 2017-08-20 10:23 | Emergency (ER) | payer OTHER ==
[~2017-08-20] VITALS: Ht 162.6 cm; Wt 83.4 kg
[~2017-08-20 10:23] MED LIST changes: +CALMOSEPTINE O120 GM TP; +IRON325 M1 PO; +LAXATIVE5 M1 PO; +LOPRESSOR25 MG PO; +MYCOSTATIN15 GM PO; +VANCOCIN HCL125 MG PO; +VANCOMYCIN HCL125 MG PO
[2017-08-20 11:16] LABS: HEMATOCRIT 40.1 % (38.0-50.0); MCH 32.4 PG (29.0-34.0); MCHC 34.9 G/DL (30.0-36.0); MCV 92.8 FL (86-99); PLATELET COUNT 83 K/uL (156-360); RBC DIS.WIDTH-SD 51.8 % (39-53); RED BLOOD COUNT 4.32 M/uL (4.00-5.50); WHITE BLOOD COUNT 5.4 K/uL (4.1-10.2)
[2017-08-20 11:25] LABS: ALBUMIN 3.7 g/dL (3.2-4.8); CHLORIDE 102 mEq/L (99-109); SODIUM 139 mEq/L (136-147)
[2017-08-20 11:27] LABS: GLUCOSE 159 mg/dL (70-99); TOTAL PROTEIN 8.2 g/dL (6.4-8.3)
[2017-08-20 11:29] LABS: TOTAL BILIRUBIN 1.3 mg/dL (0.0-1.0)
[2017-08-20 11:30] LABS: ALKALINE PHOSPHATASE 100 IU/L (3-129)
[2017-08-20 11:31] LABS: CREATININE 1.4 mg/dL (0.6-1.3); GFR ESTIMATE (CALCULATED) 52 mL/min/ (58.99-99999)
[2017-08-20 11:32] LABS: AST (GOT) 133 IU/L (2-34); UREA NITROGEN (BUN) 21 mg/dL (9-23)
[2017-08-20] MEDS ORDERED: AZITHROMYCIN250 MG1 PO (11:32)
[2017-08-20 11:34] LABS: ALT (GPT) 86 IU/L (3-49)
[2017-08-20 11:37] LABS: TROP-I INTERPRETATION NEGATIVE; TROPONIN-I 0.02 ng/mL (0.0-0.30)
[2017-08-20] MEDS ORDERED: ZOFRAN ODT8 MG PO (11:47)
[2017-08-20] MEDS ORDERED: ALBUTEROL2.5 MG/3 M IH (12:15)
[2017-08-20 15:45] VITALS: BP 92/49
== END 2017-08-20 15:47 | disposition home or self-care (01) ==
LOC: EME → EDBD 10:23 → EME 15:47
PROVIDERS: Emergency Medicine Emergency Medical Services
DX: J18.9 Pneumonia, unspecified organism (principal); J44.0 Chronic obstructive pulmonary disease with (acute) lower respiratory infection; R09.02 Hypoxemia; R11.2 Nausea with vomiting, unspecified; R25.8 Other abnormal involuntary movements; I13.0 Hypertensive heart and chronic kidney disease with heart failure and stage 1 through stage 4 chronic kidney disease, or unspecified chronic kidney disease; I50.9 Heart failure, unspecified; N18.9 Chronic kidney disease, unspecified; E11.40 Type 2 diabetes mellitus with diabetic neuropathy, unspecified; E78.5 Hyperlipidemia, unspecified; K21.9 Gastro-esophageal reflux disease without esophagitis; I25.10 Atherosclerotic heart disease of native coronary artery without angina pectoris; I25.2 Old myocardial infarction; F41.9 Anxiety disorder, unspecified; F32.9 Major depressive disorder, single episode, unspecified; Z95.1 Presence of aortocoronary bypass graft; Z87.891 Personal history of nicotine dependence; Z79.82 Long term (current) use of aspirin; Z88.0 Allergy status to penicillin; Z88.8 Allergy status to other drugs, medicaments and biological substances
CPT/HCPCS: 71045; 80053; 83880; 84484; 85027; 87040; 93005; 94640; 99281; 99284